=== PATIENT | male | born 1980 | race Caucasian/White ===

== ENCOUNTER 2024-07-17 16:53 | Emergency (ER) | payer MEDICAID ==
[~2024-07-17] VITALS: Ht 195.6 cm; Wt 100.0 kg
[~2024-07-17 16:53] MED LIST: AZIT500T8 PO
[2024-07-17 17:00] VITALS: O2SAT 99
[2024-07-17 17:06] VITALS: BP 117/70; PULSE 82; RESP 18; TEMP 98; O2SAT 100
[2024-07-17 18:38] LABS: BASOPHILS % 3.4 % (0.0-2.0); EOSINOPHILS % 0.7 % (0.0-5.0); HEMATOCRIT. 39.7 % (42.0-52.0); HEMOGLOBIN. 13.7 g/dL (14.0-18.0); LYMPHOCYTES % 35.3 % (20.0-50.0); MEAN CORPUSCULAR HEMOGLOBIN 32.7 pg (28.0-32.0); MEAN CORPUSCULAR HGB CONC 34.4 g/dL (31.0-37.0); MONOCYTES % 9.5 % (2.0-8.0); NEUTROPHILS % 51.1 % (40.0-76.0); PLATELET 515 x1000/uL (130-400); RED BLOOD CELL COUNT 4.18 mill/uL (4.7-6.1); RED CELL DISTRIBUTION WIDTH 13.6 % (11.6-14.6); WHITE BLOOD COUNT 5.7 x1000/uL (4.5-11.0)
[2024-07-17 18:43] LABS: CHLORIDE 104 mEq/L (98-107); POTASSIUM 4.3 mEq/L (3.5-5.1); SODIUM 142 mEq/L (136-145)
[2024-07-17 18:44] LABS: CALCIUM 9.7 mg/dL (8.7-10.4); CARBON DIOXIDE 32 mEq/L (21-32)
[2024-07-17 18:49] LABS: CREATININE 1.1 mg/dL (0.6-1.3); GLUCOSE 93 mg/dL (70-105); UREA NITROGEN BLOOD 13 mg/dL (9-23)
[2024-07-17 18:51] LABS: ALANINE AMINOTRANSFERASE 22 IU/L (10-49); ALBUMIN 4.6 g/dL (3.2-4.8); ASPARTATE AMINOTRANSFERASE 20 IU/L (<34); BILIRUBIN TOTAL 0.2 mg/dL (0.1-1.0); PROTEIN TOTAL 6.8 g/dL (6.0-8.3)
[2024-07-17 18:54] LABS: BILIRUBIN DIRECT < 0.1 mg/dL (<=3.0)
[2024-07-17 19:59] LABS: PARTIAL THROMBOPLASTIN TIME 27.8 sec (23.4-31.0); PROTHROMBIN TIME 10.9 sec (9.6-11.0)
[2024-07-17] MEDS: KETOROLAC 30MG/ML VIAL IM ONE (20:30)
[2024-07-17] MEDS ORDERED: IBUP-2029 MT (21:09)
== END 2024-07-17 21:46 | disposition home or self-care (01) ==
LOC: ER 16:53
DX: K52.9 Noninfective gastroenteritis and colitis, unspecified (principal)
CPT/HCPCS: 36415; 74176; 80048; 80076; 85025; 86850; 86900; 99284

== ENCOUNTER 2024-10-21 16:07 | Emergency (ER) | payer MEDICAID ==
[~2024-10-21] VITALS: Ht 195.6 cm; Wt 104.0 kg
[~2024-10-21 16:07] MED LIST changes: +IBUP-2029 MT
[2024-10-21 16:22] VITALS: O2SAT 98
[2024-10-21 18:00] LABS: CHLORIDE 107 mEq/L (98-107); POTASSIUM 3.9 mEq/L (3.5-5.1); SODIUM 140 mEq/L (136-145)
[2024-10-21 18:01] LABS: BASOPHILS % 0.7 % (0.0-2.0); CARBON DIOXIDE 27 mEq/L (21-32); EOSINOPHILS % 0.4 % (0.0-5.0); HEMATOCRIT. 40.6 % (42.0-52.0); HEMOGLOBIN. 13.4 g/dL (14.0-18.0); LYMPHOCYTES % 29.5 % (20.0-50.0); MEAN CORPUSCULAR HEMOGLOBIN 30.8 pg (28.0-32.0); MEAN CORPUSCULAR HGB CONC 33.1 g/dL (31.0-37.0); MEAN CORPUSCULAR VOLUME 93.1 fL (80.0-94.0); MEAN PLATELET VOLUME 7.5 fl (7.4-10.4); NEUTROPHILS % 63.4 % (40.0-76.0); PLATELET 326 x1000/uL (130-400); RED BLOOD CELL COUNT 4.36 mill/uL (4.7-6.1); RED CELL DISTRIBUTION WIDTH 13.2 % (11.6-14.6); WHITE BLOOD COUNT 7.6 x1000/uL (4.5-11.0)
[2024-10-21 18:02] LABS: CALCIUM 9.6 mg/dL (8.7-10.4)
[2024-10-21 18:06] LABS: CREATININE 0.8 mg/dL (0.6-1.3); GLUCOSE 92 mg/dL (70-105); TROPONIN I HIGH SENSITIVITY 4 ng/L (3.0-53); UREA NITROGEN BLOOD 7 mg/dL (9-23)
[2024-10-21 18:13] LABS: D-DIMER 0.44 mg/L FEU (<0.50); PARTIAL THROMBOPLASTIN TIME 26.3 sec (23.4-31.0)
[2024-10-21 18:48] VITALS: BP 118/75; PULSE 64; RESP 16; TEMP 37.00296; O2SAT 98
== END 2024-10-21 18:50 | disposition home or self-care (01) ==
LOC: ER 16:07
DX: R07.9 Chest pain, unspecified (principal)
CPT/HCPCS: 36415; 71045; 80048; 84484; 85025; 85379; 93005; 99285

== ENCOUNTER 2025-03-03 21:24 | Emergency (ER) | payer MEDICAID ==
[~2025-03-03] VITALS: Ht 195.6 cm; Wt 103.9 kg
[~2025-03-03 21:24] MED LIST changes: -AZIT500T8 PO; -IBUP-2029 MT; +PROT40 MT; +THIA100T72 MT
[2025-03-03 21:56] VITALS: TEMP 37.1; O2SAT 98
[2025-03-03] MEDS: BACITRACIN ZINC OINT UDPKT TOP ONE (22:00)
[2025-03-03] MEDS ORDERED: ACET-2708 MT (22:29)
[2025-03-03] MEDS ORDERED: AMOX1TAB16 MT (22:29)
[2025-03-03] MEDS: TETANUS, DIPHTHERIA, PERTUSSIS VAC/PF 0.5ML (>10YR OLD) IM ONE (23:17)
[2025-03-03 23:19] VITALS: BP 99/57; PULSE 71; RESP 12; O2SAT 98
== END 2025-03-03 23:27 | disposition home or self-care (01) ==
LOC: ER 21:24
DX: S91.051A Open bite, right ankle, initial encounter (principal); Z79.899 Other long term (current) drug therapy; Z23 Encounter for immunization; W54.0XXA Bitten by dog, initial encounter; Y93.89 Activity, other specified; Y92.89 Other specified places as the place of occurrence of the external cause; Y99.8 Other external cause status
CPT/HCPCS: 73610; 90715; 90471; 99283; Z7610